=== PATIENT | male | born 1995 | race African-American/Black ===

== ENCOUNTER 2019-08-26 23:21 | Emergency (ER) | payer MEDICARE ==
[~2019-08-26] VITALS: Ht 175.3 cm; Wt 149.6 kg
[2019-08-27] MEDS ORDERED: KETOROLAC 30MG/ML VIAL IM ONE (00:30)
[2019-08-27 02:02] VITALS: BP 169/99
== END 2019-08-27 02:07 | disposition home or self-care (01) ==
LOC: ER 23:21
DX: M79.671 Pain in right foot (principal); M79.672 Pain in left foot; F12.10 Cannabis abuse, uncomplicated; Z90.89 Acquired absence of other organs
CPT/HCPCS: 96372; 99283; J1885; Z7610